=== PATIENT | female | born 1965 | race Caucasian/White ===

== ENCOUNTER 2016-09-04 11:52 | Emergency (ER) | payer MEDICARE, OTHER ==
[2016-09-04 12:28] LABS: BILIRUBIN NEGATIVE (NEGATIVE); BLOOD TRACE-INTACT Ery/uL (NEGATIVE); COLOR YELLOW (YELLOW); GLUCOSE (U) 3+ mg/dL (NORMAL); KETONE (U) NEGATIVE (NEGATIVE); LEUKOCYTES NEGATIVE Leu/uL (NEGATIVE); NITRITE NEGATIVE (NEGATIVE); PROTEIN TRACE (LOW) mg/dL (NEGATIVE); SPECIFIC GRAVITY 1.025 (1.001-1.030); UROBILINOGEN 0.2 mg/dL (0.2-1.0); pH 5.5 (5.0-9.0)
[2016-09-04 12:29] LABS: CLARITY HAZY (CLEAR)
[2016-09-04 12:39] LABS: BASOPHIL 0.2 % (0-2); EOSINOPHIL 0.2 % (0-5); HCT 39.3 % (37.0-47.0); HGB 13.7 g/dl (12.5-16.0); LYMPHOCYTE 17.4 % (15-48); MCHC 34.9 g/dL (32.0-36.0); MCV 91.8 fL (78.0-100.0); MONOCYTE 7.7 % (0-12); MPV 9.6 fL (6.0-9.5); NEUTROPHIL 74.5 % (41-80); PLT 188 K/uL (150-400); RBC 4.28 M/uL (4.20-5.40); RDW 12.1 % (11.5-14.0); WBC 9.6 K/uL (4.0-10.5)
[2016-09-04 12:42] LABS: BACTERIA 2+; YEAST PRESENT
[2016-09-04 13:04] LABS: ALBUMIN 3.8 g/dL (3.5-5.0); BILIRUBIN - TOTAL 0.8 mg/dL (0.1-1.0); CREATININE 0.7 mg/dL (0.5-1.0); GLOBULIN (CALCULATION) 3.8 g/dL (2.2-4.2); POTASSIUM 4.2 mmol/L (3.5-5.1); TOTAL PROTEIN 7.6 g/dL (6.4-8.3)
== END 2016-09-04 13:51 | disposition home or self-care (01) ==
LOC: FER 11:52
PROVIDERS: Emergency Medicine
DX: J18.9 Pneumonia, unspecified organism (principal); J44.9 Chronic obstructive pulmonary disease, unspecified; E11.9 Type 2 diabetes mellitus without complications; Z87.891 Personal history of nicotine dependence; Z79.51 Long term (current) use of inhaled steroids; Z79.84 Long term (current) use of oral hypoglycemic drugs; Z90.2 Acquired absence of lung [part of]
CPT/HCPCS: 36415; 71020; 80053; 81001; 85025; 87040; 94640

== ENCOUNTER 2021-01-29 10:28 | Emergency (ER) | payer OTHER ==
[~2021-01-29 10:28] MED LIST: DULOXETINE HCL20 MG PO; HYDROCODON-ACE1 EAC2 PO; HYDROCODONE PO; KETOCONAZOLE120 ML TOP; MELOXICAM15 MG PO; METFORMIN HCL1000 MG PO; NEURONTIN300 MG PO; NORCO 7.5-3251 EACH PO; PROAIR HFA8.5 GM INH; SYMBICORT 16010.2 GM INH; VENTOLIN HFA IN18 GM INH; VICTOZA SC; VOLTAREN100 GM TOP
[2021-01-31] MEDS ORDERED: HYDROCODON-ACE1 EAC2 PO ×2 (10:18)
== END 2021-01-29 16:07 | disposition home or self-care (01) ==
LOC: FER 10:28
DX: S16.1XXA Strain of muscle, fascia and tendon at neck level, initial encounter (principal); S90.31XA Contusion of right foot, initial encounter; S80.02XA Contusion of left knee, initial encounter; S80.01XA Contusion of right knee, initial encounter; E11.9 Type 2 diabetes mellitus without complications; I10 Essential (primary) hypertension; W01.0XXA Fall on same level from slipping, tripping and stumbling without subsequent striking against object, initial encounter; Y92.009 Unspecified place in unspecified non-institutional (private) residence as the place of occurrence of the external cause
CPT/HCPCS: 72125; 73030; 73564; 73610; 73630; J1885

== ENCOUNTER 2021-12-17 14:46 | Emergency (ER) | payer OTHER ==
[~2021-12-17 14:46] MED LIST changes: +VOLTAREN ARTHRI20 GM TOP
[2021-12-17 16:32] LABS: BASOPHIL 0.2 % (0-2); EOSINOPHIL 0.8 % (0-5); HCT 42.2 % (37.0-47.0); HGB 14.9 g/dl (12.5-16.0); LYMPHOCYTE 10.5 % (15-48); MCH 33.1 pg (25.0-31.0); MCHC 35.3 g/dL (32.0-36.0); MCV 93.8 fL (78.0-100.0); MONOCYTE 3.7 % (0-12); MPV 10.6 fL (6.0-9.5); NEUTROPHIL 84.5 % (41-80); NRBC 0; PLT 145 K/uL (150-400); RDW 12.3 % (11.5-14.0); WBC 8.6 K/uL (4.0-10.5)
[2021-12-17 17:10] LABS: BUN 19 mg/dL (7-18); BUN/CREAT RATIO (CALC) 21.8 RATIO; CHLORIDE 98 mmol/L (98-107); CO2 (BICARBONATE) 31 mmol/L (21-32); CREATININE 0.87 mg/dL (0.51-0.95); POTASSIUM 4.5 mmol/L (3.5-5.1)
[2021-12-17 17:15] LABS: GLUCOSE 476 mg/dL (74-106)
== END 2021-12-17 21:40 | disposition home or self-care (01) ==
LOC: FER 14:46
PROVIDERS: Emergency Medicine
DX: E11.65 Type 2 diabetes mellitus with hyperglycemia (principal); R07.89 Other chest pain; I10 Essential (primary) hypertension; J44.9 Chronic obstructive pulmonary disease, unspecified; Z28.310 Unvaccinated for COVID-19; Z87.891 Personal history of nicotine dependence; Z79.899 Other long term (current) drug therapy
CPT/HCPCS: 36415; 71250; 80048; 83036; 84145; 84484; 85025; 93005; 94640; 94664; J7030